=== PATIENT | female | born 1955 | race Caucasian/White ===

== ENCOUNTER 2020-07-09 10:27 | Outpatient (CLI) | payer MEDICARE, SELFPAY ==
--- NOTE | 2020-07-09 11:30 | NEURO_ITS ---
Impression: # Complains of right lower extremity pain. # Normal motor and sensory nerve conduction study. # Normal needle/EMG exam, no neurogenic changes noted. # Clinical correlation recommended. Nerve Conduction Studies Anti Sensory Summary Table Stim Site NR Peak (ms) P-T Amp (?V) Site1 Site2 Delta-P (ms) Dist (cm) [place] (m/s) Left Sup Fibular Anti Sensory (Ant Lat Mall) 14 cm 3.2 8.5 14 cm Ant Lat Mall 3.2 16.0 50 Right Sup Fibular Anti Sensory (Ant Lat Mall) 14 cm 2.9 8.7 14 cm Ant Lat Mall 2.9 16.0 55 Left Sural Anti Sensory (Lat Mall) Calf 3.3 18.6 Calf Lat Mall 3.3 16.0 48 Right Sural Anti Sensory (Lat Mall) Calf 3.0 6.3 Calf Lat Mall 3.0 16.0 53 Motor Summary Table Stim Site NR Onset (ms) O-P Amp (mV) Site1 Site2 Delta-0 (ms) Dist (cm) [place] (m/s) Left Peroneal Motor (Vastus Med) Ankle 4.1 1.4 Popit Ankle 7.3 37.0 51 Popit 11.4 1.1 Right Peroneal Motor (Vastus Med) Ankle 4.4 1.3 Popit Ankle 7.4 36.0 49 Popit 11.8 1.0 Left Tibial Motor (Abd Peña Brev) Ankle 4.9 2.2 Knee Ankle 7.8 39.0 50 Knee 12.7 2.7 Right Tibial Motor (Abd Peña Brev) Ankle 4.8 3.2 Knee Ankle 6.9 28.0 41 Knee 11.7 2.8 F Wave Studies NR F-Lat (ms) L-R F-Lat (ms) Left Peroneal (Mrkrs) (EDB) 46.14 0.98 Right Peroneal (Mrkrs) (EDB) 47.12 0.98 Left Tibial (Mrkrs) (Abd Hallucis) 47.03 0.63 Right Tibial (Mrkrs) (Abd Hallucis) 47.66 0.63 EMG Side Muscle Nerve Root Ins Act Fibs Amp Dur Recrt Comment Right AntTibialis Dp Br Fibular L4-5 Nml Nml Nml Nml Nml Right Gastroc Tibial S1-2 Nml Nml Nml Nml Nml Right Fibularis Long Sup Br Fibular L5-S1 Nml Nml Nml Nml Nml Right Flex Dig Long Tibial L5-S2 Nml Nml Nml Nml Nml Right Ext Dig Brev Dp Br Fibular L5, S1 Nml Nml Nml Nml Nml Left AntTibialis Dp Br Fibular L4-5 Nml Nml Nml Nml Nml Left Gastroc Tibial S1-2 Nml Nml Nml Nml Nml Left Fibularis Long Sup Br Fibular L5-S1 Nml Nml Nml Nml Nml Left Flex Dig Long Tibial L5-S2 Nml Nml Nml Nml Nml Left Ext Dig Brev Dp Br Fibular L5, S1 Nml Nml Nml Nml Nml MTDD
== END 2020-07-09 10:28 | disposition home or self-care (01) ==
PROVIDERS: PCP Physician Assistant; Visit Provider Physician Assistant
DX: M79.605 Pain in left leg (principal)
CPT/HCPCS: 95886; 95910

== ENCOUNTER 2023-03-01 09:39 | Outpatient (CLI) | payer MEDICARE, SELFPAY ==
--- NOTE | 2023-03-01 11:15 | NEURO_ITS ---
Impression: # Complains of paresthesia of lower extremities. Status post bilateral total knee arthroplasty. # Normal motor and sensory Nerve Conduction Study. # Normal needle/EMG. # Clinical correlation recommended. Problem could be related to small fiber neuropathy. Nerve Conduction Studies Anti Sensory Summary Table Stim Site NR Peak (ms) P-T Amp (?V) Site1 Site2 Delta-P (ms) Dist (cm) [place] (m/s) Left Saphenous Anti Sensory (Ant Med Mall) 14cm 3.2 8.0 14cm Ant Med Mall 3.2 0.0 Right Saphenous Anti Sensory (Ant Med Mall) 14cm 3.0 22.4 14cm Ant Med Mall 3.0 0.0 Left Sup Fibular Anti Sensory (Ant Lat Mall) 14 cm 3.2 6.2 14 cm Ant Lat Mall 3.2 16.0 50 Right Sup Fibular Anti Sensory (Ant Lat Mall) 14 cm 3.7 26.1 14 cm Ant Lat Mall 3.7 16.0 43 Left Sural Anti Sensory (Lat Mall) Calf 3.2 28.1 Calf Lat Mall 3.2 16.0 50 Right Sural Anti Sensory (Lat Mall) Calf 3.2 21.4 Calf Lat Mall 3.2 16.0 50 Motor Summary Table Stim Site NR Onset (ms) O-P Amp (mV) Site1 Site2 Delta-0 (ms) Dist (cm) [place] (m/s) Left Lateral Plantar Motor (ADM) Med Mall 3.8 0.2 Right Lateral Plantar Motor (ADM) Med Mall 3.7 0.1 Left Peroneal Motor (Vastus Med) Ankle 3.9 1.2 Popit Ankle 7.9 37.0 47 Popit 11.8 1.7 Right Peroneal Motor (Vastus Med) Ankle 4.1 1.9 Popit Ankle 7.4 36.0 49 Popit 11.5 1.4 Left Tibial Motor (Abd Peña Brev) Ankle 4.1 3.6 Knee Ankle 7.4 39.0 53 Knee 11.5 3.2 Right Tibial Motor (Abd Peña Brev) Ankle 4.1 1.6 Knee Ankle 8.1 36.0 44 Knee 12.2 0.9 F Wave Studies NR F-Lat (ms) L-R F-Lat (ms) Left Peroneal (Mrkrs) (EDB) 46.87 0.71 Right Peroneal (Mrkrs) (EDB) 47.58 0.71 Left Tibial (Mrkrs) (Abd Hallucis) 47.35 0.93 Right Tibial (Mrkrs) (Abd Hallucis) 48.28 0.93 EMG Side Muscle Nerve Root Ins Act Fibs Amp Dur Recrt Comment Right AntTibialis Dp Br Fibular L4-5 Nml Nml Nml Nml Nml Right Gastroc Tibial S1-2 Nml Nml Nml Nml Nml Right Fibularis Long Sup Br Fibular L5-S1 Nml Nml Nml Nml Nml Right Flex Dig Long Tibial L5-S2 Nml Nml Nml Nml Nml Right Ext Dig Brev Dp Br Fibular L5, S1 Nml Nml Nml Nml Nml Left AntTibialis Dp Br Fibular L4-5 Nml Nml Nml Nml Nml Left Gastroc Tibial S1-2 Nml Nml Nml Nml Nml Left Fibularis Long Sup Br Fibular L5-S1 Nml Nml Nml Nml Nml Left Flex Dig Long Tibial L5-S2 Nml Nml Nml Nml Nml Left Ext Dig Brev Dp Br Fibular L5, S1 Nml Nml Nml Nml Nml Right QuadratusFem QuadFemoris L4-5, S1 Nml Nml Nml Nml Nml Left QuadratusFem QuadFemoris L4-5, S1 Nml Nml Nml Nml Nml MTDD
== END 2023-03-01 09:40 | disposition home or self-care (01) ==
LOC: ANHNEURO 09:40
PROVIDERS: PCP Physician Assistant; Visit Provider Physician Assistant
DX: R20.2 Paresthesia of skin (principal)
CPT/HCPCS: 95886; 95912

== ENCOUNTER 2023-10-31 07:28 | Outpatient (CLI) | payer MEDICARE, SELFPAY ==
--- NOTE | ~2023-10-31 | MR_ITS ---
EXAMINATION: MR abdomen wo/w con DATE: 10/31/2023 08:24 INDICATION: Kidney mass. TECHNIQUE: Magnetic resonance imaging (MRI) of the abdomen was performed without and with 13 mL Multi Stepan intravenous contrast. COMPARISON: None. FINDINGS: There is diffuse hepatic steatosis. There is a gallstone in the gallbladder which is normal in size. The spleen, pancreas, adrenal glands, and kidneys are normal. There is a prominent vein medial to the left kidney. There are no dilated loops of bowel. There are no pathologically enlarged lymph nodes. There is no free intraperitoneal fluid. There are changes of posterior fusion procedure in lumbar spi ne. IMPRESSION: 1. Normal kidneys. No abnormal mass. Reviewed, dictated and finalized at location A.
== END 2023-10-31 07:29 | disposition home or self-care (01) ==
PROVIDERS: PCP Physician Assistant; Visit Provider Physician Assistant
DX: N28.89 Other specified disorders of kidney and ureter (principal)
CPT/HCPCS: 74183; A9577